=== PATIENT | female | born 1940 | race Native Hawaiian/Other Pacific Islander ===

== ENCOUNTER 2020-08-03 03:49 | Emergency (ER) | payer OTHER ==
[~2020-08-03] VITALS: Ht 152.4 cm; Wt 90.7 kg
[2020-08-03 03:55] VITALS: TEMP 95.7
[2020-08-03 04:06] VITALS: BP 168/89
== END 2020-08-03 05:48 | disposition expired ==
LOC: ED 04:03
PROC: 5A12012 Performance of Cardiac Output, Single, Manual (ICD-10-PCS; principal; 2020-08-03)
PROC: 0BH17EZ Insertion of Endotracheal Airway into Trachea, Via Natural or Artificial Opening (ICD-10-PCS; 2020-08-03)
DX: I46.9 Cardiac arrest, cause unspecified (principal)
CPT/HCPCS: 31500; 92950; 96374; 96375; 96376; 99285; 99291; J0171; J0282; J0461